=== PATIENT | female | born 1990 | race Two or more races ===

== ENCOUNTER 2022-01-16 15:00 | Emergency (ER) | payer OTHER ==
[~2022-01-16] VITALS: Ht 152.4 cm; Wt 72.6 kg
[2022-01-16] MEDS ORDERED: MEDROXYPROGESTE10 MG PO (18:39)
== END 2022-01-16 18:58 | disposition home or self-care (01) ==
LOC: ER 15:00
DX: N93.9 Abnormal uterine and vaginal bleeding, unspecified (principal)

== ENCOUNTER 2022-11-27 16:19 | Inpatient (IN) | payer OTHER ==
[~2022-11-27] VITALS: Ht 162.6 cm; Wt 99.8 kg
[~2022-11-27 16:19] MED LIST: MEDROXYPROGESTE10 MG PO
--- NOTE | 2022-11-27 16:55 | NUR ---
SE RECIBE PTE ALERTA Y ORIENTADA X3 LA CUAL REFIERE VENIR POR DOLOR DE PECHO DESDE EL DAMON DE HOY. SE MIDE S/V A PTE Y SE REALIZA EKG, SE PRESENTA EL MISMO A DR. MATACELESTE EL CUAL REFIERE PTE SE PUEDE EVALUAR POR AREA DE FT. PTE SE COLOCA EN HODAN DE ESPERA.
--- NOTE | 2022-11-27 18:20 | NUR ---
PACIENTE EVALUADA POR EL QUIEN ORDENA TRATAMIENTO MEDICO. SE REALIZAN MUESTRAS BAJO MEDIDAS ASEPTICAS Y SE ADMINISTRAN MEDICAMENTOS MISTY ORDEN MEDICA.
== END 2022-11-29 21:10 | disposition home or self-care (01) | DRG 684 ==
LOC: ER 16:19 → MEDJ 22:18
PROVIDERS: ADMIT Internal Medicine; ATTEND Internal Medicine
PROC: 30233N1 Transfusion of Nonautologous Red Blood Cells into Peripheral Vein, Percutaneous Approach (ICD-10-PCS; principal; 2022-11-28)
DX: N17.8 Other acute kidney failure (principal); N93.8 Other specified abnormal uterine and vaginal bleeding; D50.0 Iron deficiency anemia secondary to blood loss (chronic); M94.0 Chondrocostal junction syndrome [Tietze]

== ENCOUNTER 2023-05-13 16:21 | Emergency (ER) | payer OTHER ==
[~2023-05-13] VITALS: Ht 152.4 cm; Wt 88.5 kg
[2023-05-13] MEDS ORDERED: IRON240 MG (16:48)
[2023-05-13] MEDS ORDERED: VITAL-D RX TAB1 EACH (16:48)
[2023-05-13] MEDS ORDERED: NEPHRONEX-SL T1 EACH (16:48)
== END 2023-05-13 19:45 | disposition home or self-care (01) ==
LOC: ER 16:21
DX: N93.8 Other specified abnormal uterine and vaginal bleeding (principal)

== ENCOUNTER 2023-06-06 12:58 | Emergency (ER) | payer OTHER ==
[~2023-06-06] VITALS: Ht 152.4 cm; Wt 81.6 kg
[~2023-06-06 12:58] MED LIST changes: +IRON240 MG; +NEPHRONEX-SL T1 EACH; +VITAL-D RX TAB1 EACH
== END 2023-06-06 18:18 | disposition home or self-care (01) ==
LOC: ER 12:58
PROVIDERS: Nurse Practitioner Family
DX: J06.9 Acute upper respiratory infection, unspecified (principal); Z20.822 Contact with and (suspected) exposure to COVID-19